=== PATIENT | male | born 1990 | race Caucasian/White ===

== ENCOUNTER 2016-04-22 09:20 | Emergency (ER) | payer BC, OTHER ==
[2016-04-22 09:47] VITALS: BP 115/58
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
== END 2016-04-22 12:19 | disposition home or self-care (01) ==
LOC: ED 09:20
DX: S01.511A Laceration without foreign body of lip, initial encounter (principal); S00.83XA Contusion of other part of head, initial encounter; R51 Headache; V49.9XXA Car occupant (driver) (passenger) injured in unspecified traffic accident, initial encounter; Y93.9 Activity, unspecified; Y92.9 Unspecified place or not applicable; Y99.9 Unspecified external cause status; R04.0 Epistaxis; Z87.891 Personal history of nicotine dependence
CPT/HCPCS: 70486; 99281

== ENCOUNTER 2016-06-10 15:49 | Emergency (ER) | payer BC, OTHER ==
[2016-06-10 17:29] LABS: Hematocrit 50 % (42-52); Hemoglobin 16.3 g/dl (14.0-18.0); Mean Corpuscular HGB Conc 33 g/dl (31-36); Mean Corpuscular Hemoglobin 29 pg (27-31); Mean Corpuscular Volume 87 fL (80-94); Mean Platelet Volume 8 um3 (7.4-10.4); Red Blood Count 5.67 10^6/ul (4.0-5.4); Red Cell Distribution Width 13 % (10.5-15)
[2016-06-10 17:31] LABS: Urine Bilirubin Negative (Negative); Urine Glucose Negative (Negative); Urine Nitrite Negative (Negative)
[2016-06-10 17:40] LABS: Albumin 4.5 g/dL (3.2-5.2); BUN/Creatinine Ratio 15.2 (8-20); Calcium 9.4 mg/dL (8.6-10.3); EGFR African American 153.7 (>60); EGFR Non-African American 119.5 (>60); Globulin 2.8 g/dL (2-4); Magnesium 2.1 mg/dL (1.9-2.7); Potassium 3.5 mmol/L (3.5-5.0); Total Bilirubin 0.4 mg/dL (0.2-1.0); Total Protein 7.3 g/dL (6.4-8.9)
[2016-06-10 17:42] LABS: Troponin I 0.01 ng/mL (<0.04)
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
[2016-06-10 17:59] LABS: TSH (Thyroid Stimulating Horm) 1.23 mcIU/mL (0.34-5.60)
[2016-06-10 18:36] VITALS: BP 138/75
== END 2016-06-10 18:34 | disposition home or self-care (01) ==
LOC: ED 15:49
DX: R55 Syncope and collapse (principal); M54.5 Low back pain; G89.29 Other chronic pain
CPT/HCPCS: 36415; 80053; 81003; 83605; 83735; 84443; 84484; 85025; 93005; 99282

== ENCOUNTER 2017-04-26 22:05 | Emergency (ER) | payer OTHER ==
[2017-04-27] MEDS ORDERED: diPHENhydraMINE IV* 50 MG/ML 1 ml VIAL (BENADRYL) IV ONE (00:01)
[2017-04-27] MEDS ORDERED: NS 0.9% 1000 ML* 1,000 ML IV ONE (00:01)
[2017-04-27] MEDS ORDERED: Ketorolac INJ* 30 MG/ML 1 ML VIAL IV PUSH ONE (00:01)
[2017-04-27] MEDS ORDERED: Metoclopramide IV* 5 MG/ML 2 ML VIAL IV SLOW PU ONE (00:02)
[2017-04-27 00:21] LABS: ABS Basophils 0 10^3/ul (0-0.2); ABS Eosinophils 0.1 10^3/ul (0-0.6); ABS Lymphocytes 2.3 10^3/ul (1.0-4.8); ABS Monocytes 0.7 10^3/ul (0-0.8); ABS Neutrophils 3.5 10^3/ul (1.5-7.7); ABS Nucleated RBC 0 10^3/ul; Eosinophil % 1.6 % (0-6); Hematocrit 46 % (42-52); Hemoglobin 15.6 g/dl (14.0-18.0); Lymphocyte % 34.7 % (25-47); Mean Corpuscular HGB Conc 34 g/dl (31-36); Mean Corpuscular Hemoglobin 30 pg (27-31); Mean Corpuscular Volume 89 fL (80-94); Mean Platelet Volume 9 um3 (7.4-10.4); Nucleated Red Blood Cells % 0; Platelet Count 176 10^3/ul (150-450); Red Blood Count 5.15 10^6/ul (4.0-5.4); Red Cell Distribution Width 13 % (10.5-15); White Blood Count 6.6 10^3/ul (3.5-10.8)
--- NOTE | 2017-04-27 01:49 | ED ---
Kennedy Sharma Nilda, scribed for Bjorn Marin MD on 04/27/17 at 0008 . Syncope/Near Syncope - HPI Summary HPI Summary: This patient is a 26 year old M presenting to [facility] accompanied by family with a chief complaint of witnessed sudden onset syncopal episode (lasting 10 mins) at 2130 last night. The patient rates the pain 9/10 in severity. Symptoms aggravated by nothing and alleviated by spontaneous resolution. Patient reports nausea and headache (chronic), but denies any injury. PMHx migraine and syncope. Pt does not see neurologist, per triage note. - History Of Current Complaint Chief Complaint: EDSyncope Time Seen by Provider: 04/26/17 23:52 Hx Obtained From: Patient, Medical Records Onset/Duration: Sudden Onset, Lasting Hours, Resolved Context: Witnessed Associated Head Trauma: No Aggravating Factor(s): Nothing Alleviating Factor(s): Spontaneous Resolution Associated Signs And Symptoms: Headache, Other - nausea; negative injury - Allergies/Home Medications Allergies/Adverse Reactions: Allergies Allergy/AdvReac Type Severity Reaction Status Date / Time Latex Allergy Intermediate Rash Verified 04/26/17 22:21 Sulfa Drugs Allergy Unknown Unknown Verified 04/26/17 22:21 Reaction Details PMH/Surg Hx/FS Hx/Imm Hx Endocrine/Hematology History: Denies: Hx Anticoagulant Therapy, Hx Blood Disorders, Hx Anemia, Hx Unexplained Bleeding Neurological History: Reports: Hx Migraine Comment Only: Other Neuro Impairments/Disorders - H/o BACK PAIN, per pt Tourette's syndrome, syncope Infectious Disease History: No Infectious Disease History: Reports: History Other Infectious Disease - Lyme dz , recurring Denies: Traveled Outside the [place] in Last 30 Days - Family History Known Family History: Positive: Cardiac Disease - [place]'s in 40's, Diabetes, Respiratory Disease - COPD - Social History Alcohol Use: Occasionally Substance Use Type: Reports: Marijuana - occasionally Smoking Status (MU): Former Smoker Review of Systems Positive: Nausea Positive: Other - negative injury Positive: Headache, Syncope All Other Systems Reviewed And Are Negative: Yes Physical Exam - Summary Physical Exam Summary: VITAL SIGNS: Reviewed. GENERAL: Patient is a well-developed and nourished male who is lying comfortable in the stretcher. Patient is not in any acute respiratory distress. HEAD AND FACE: No signs of trauma. No ecchymosis, hematomas or skull depressions. No sinus tenderness. EYES: PERRLA, EOMI x 2, No injected conjunctiva, no nystagmus. EARS: Hearing grossly intact. Ear canals and tympanic membranes are within normal limits. MOUTH: Oropharynx within normal limits. NECK: Supple, trachea is midline, no adenopathy, no JVD, no carotid bruit, no c- spine tenderness, neck with full ROM. CHEST: Symmetric, no tenderness at palpation LUNGS: Clear to auscultation bilaterally. No wheezing or crackles. CVS: Regular rate and rhythm, S1 and S2 present, no murmurs or gallops appreciated. ABDOMEN: Soft, non-tender. No signs of distention. No rebound no guarding, and no masses palpated. Bowel sounds are normal. EXTREMITIES: FROM in all major joints, no edema, no cyanosis or clubbing. NEURO: Alert and oriented x 3. No acute neurological deficits. Speech is normal and follows commands. SKIN: Dry and warm Triage Information Reviewed: Yes Vital Signs On Initial Exam: Initial Vitals Temp Pulse Resp BP Pulse Ox 97.8 F 84 16 136/72 96 04/26/17 22:10 04/26/17 22:10 04/26/17 22:10 04/26/17 22:10 04/26/17 22:10 Vital Signs Reviewed: Yes Diagnostics - Vital Signs Vital Signs Temp Pulse Resp BP Pulse Ox 04/26/17 22:10 97.8 F 84 16 136/72 96 - Laboratory Result Diagrams: 04/27/17 00:05 04/27/17 00:05 Lab Statement: Any lab studies that have been ordered have been reviewed, and results considered in the medical decision making process. - EKG 2230 Cardiac Rate: NL EKG Rhythm: Sinus Rhythm - 73 bpm EKG Interpretation: Normal axis. Normal interval. No ischemic changes Re-Evaluation - Re-Evaluation First Eval Re-Evaluation Time: 01:26 Comment: Pt feels better. He is agreeable to D/C. Course/Dx Assessment/Plan: Pt is 26 y/o M presenting to ED with Hx headache and c/o GERMAIN and syncope. EKG and Labs unremarkable. Pt feels better after treatment in ED. Pt is D/C with Dx of GERMAIN. Pt understands and is agreeable with this plan. - Diagnoses Provider Diagnoses: Headache Discharge - Discharge Plan Condition: Stable Disposition: HOME Patient Education Materials: General Headache (ED) Referrals: Grace Lopez NP [Primary Care Provider] - 3 Days Additional Instructions: RETURN TO THE EMERGENCY DEPARTMENT FOR CHANGING OR WORSENING SYMPTOMS. The documentation as recorded by the Kennedy frias Nilda accurately reflects the service I personally performed and the decisions made by , Bjorn Marin MD.
[2017-04-27 01:58] VITALS: BP 121/66
== END 2017-04-27 02:05 | disposition home or self-care (01) ==
LOC: ED 22:05
DX: R51 Headache (principal); R55 Syncope and collapse; R11.0 Nausea; Z87.891 Personal history of nicotine dependence
CPT/HCPCS: 36415; 80053; 83735; 84443; 84484; 85025; 93005; 96374; 96375; 99283; J1200; J1885; J2765

== ENCOUNTER 2017-09-26 04:18 | Emergency (ER) | payer OTHER ==
[2017-09-26 04:24] VITALS: BP 149/90
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
== END 2017-09-26 04:34 | disposition home or self-care (01) ==
LOC: ED 04:18
DX: Z04.9 Encounter for examination and observation for unspecified reason (principal); Z72.89 Other problems related to lifestyle; Z87.891 Personal history of nicotine dependence
CPT/HCPCS: 99281

== ENCOUNTER 2017-11-19 23:12 | Emergency (ER) | payer OTHER ==
--- OUTSIDE RECORDS SUMMARY | 2017-11-19 23:25 | XMS REPORT ---
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 [place] [address] Medigap Part B Effective: Policy Number: Excellus SACHI Singh Yakelin Jessica 2013 [id number] Abhi Expires: 2014 Group Name: [place] [address] [address] PayID: [id number] JEREMY Ronquillo [id number] Medigap Part B Effective: Policy Number: Excell[employer] SACHI Francisco Yakelin Lopez 2014 [id number] Abhi Expires: 2016 Group Name: [place] 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 Lewis work on side. Cigarette Use Former Cigarette Smoker 1 Pack Daily Smokeless Tobacco Former Smokeless Tobacco User, Used Occasionally ETOH Use Occasionally consumes alcohol Recreational Drug Use Regularly uses Marijuana Smoking Patient is a former smoker Enjoy Exercising Enjoys exercising Currently Active Patient is currently sexually active Sexual Hx text Reports that his girlfriend has hx of Chlamydia. Pt requests STI testing today. Allergies, Adverse Reactions, Alerts Date Description Reaction Status Severity Comments 10/16/2013 Sulfa active 10/16/2013 Latex active Medications Medication Date Status Form Strength Qnty SIG Indications Ordering Provider Magnesium Active Capsules 300mg 60caps 1 tab by G47.00 Tc 018 mouth once Zach, or twice a MD day Rizatriptan Active Tablets 10mg 12tabs take 1 Tc Benzoate 018 tablet by Zach mouth one MD time at onset of headache may repeat after2 hours if headache persists as needed for migraine head Robaxin-750 Active Tablets 750mg 45tabs 1 tab by Tc 018 mouth Hetammy, three MD times a day for muscle spasm Trazodone HCL Active Tablets 50mg 60tabs take one Tc 017 to two Gerardoetderks, tablets by mouth at bedtime Meloxicam Active Tablets 7.5mg 60tabs take 1 Tc 016 tablet by janusz Serrano MD twice daily with food for back pain Lexapro Hx Tablets 20mg 30tabs 1 by mouth F32.9 Tc 018 - every day. 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 Ondansetron Hx Tablets 4mg 20twen dissolve 1 088.81 Grace 015 - Dispers ty tab by John mouth [employer] MACHINE [employer]-C 015 three times a day as needed nausea Oxycodone HCL Hx Tablets 5mg 20twen 1 by mouth 088.81 Grace 015 - ty q6hr as John needed [employer]-C 015 severe pain Fluoxetine HCL Hx Capsules 20mg 30caps 1 by mouth Grace 015 - every day John [employer]ACH[employer] 015 Trazodone HCL Hx Tablets 50mg 60tabs take one Grace 015 - to two John tablets by [employer] MACHINE [employer]-C 015 mouth at bedtime Robaxin-750 Hx Tablets 750mg 45tabs 1 tab by Grace 015 - mouth John three [employer] MACHINE [employer]-C 015 times a day for muscle spasm Sertraline HCL Hx Tablets 50mg 30tabs 1/2 tablet 300.00 Grace 015 - po qd X 7 John days then B[employer] MACHINE TENDER-C 015 1 tablet by mouth every day Hydroxyzine Hx Tablets 10mg 45tabs 1 -3 300.00 Grace HCL 015 - tablet by John, mouth [employer]-C 016 three times a day for anxiety/in somnia Doxycycline Hx Capsules 100mg 20caps 1 tab by 041.19 Grace Hyclate 015 - mouth John twice a [employer] MACHINE [employer]-C 015 day x 10 days Lexapro Hx Tablets 10mg 30tabs 1/2 tab by 311 Grace 015 - mouth x 7 John, days then [employer] MACHINE [employer]-C 015 1 by mouth every day Cephalexin Hx Tablets 500mg 14tabs take 1 041.19 Grace 015 - tablet by John mouth [employer]ACH[employer]-C 015 twice a day x 7 days No Active Hx Unknown Medications 014 - 014 Glucosamine Hx Tablets Unknown Chondroitin 000 - Complex Advanced 015 Medications Administered in Office Medication Date Status Form Strength Qnty SIG Indications Ordering Provider Phenergan Administered Injection Tc Injection (Up 018 He[place]derks, To 50MG) MD Injection Administered Injection Tc Ketorolac 018 He[place]ks, Tromethamine MD Per 15 MG (Toradol) Injection Administered Injection Grace Ketorolac 018 John, Tromethamine [employer] MACHINE TENDER-C Per 15 MG (Toradol) Injection Administered Injection Grace Ketorolac 018 John, Tromethamine BINDERY MACHINE TENDER-C Per 15 MG (Toradol) Immunizations CPT Code Status Date Vaccine Lot # [id number] Given 04/30/2017 Influenza Virus Vaccine, Quadrivalent, 3 Yr > [id number] Quad, Preserv Free 61492 Given 02/24/2016 Tdap (Adacel) [id number] 32039 Given 02/24/2016 Influenza Virus Vaccine, Quadrivalent, 3 Yr > [id number] Quad, Preserv Free 08406 Given 06/21/2008 Menactra (meningococcal conjugate vaccine) 70947 Given 06/23/1995 Opv (Poliovirus,Oral) 94411 Given 06/23/1995 MMR (Measles,Mumps,Rubella) 50965 Given 06/23/1995 DTaP (Daptacel) 47183 Given 08/28/1992 Hep B Vaccine, Ped/Adol Dose 3 Dose (Engerix or Recombivax) 34690 Given 04/04/1992 Hep B Vaccine, Ped/Adol Dose 3 Dose (Engerix or Recombivax) 25648 Given 02/28/1992 Hep B Vaccine, Ped/Adol Dose 3 Dose (Engerix or Recombivax) 45766 Given 09/21/1991 Hib (Hemophilus Influenza B) (Acthib) 17385 Given 09/21/1991 DTaP (Daptacel) 31293 Given 09/21/1991 MMR (Measles,Mumps,Rubella) 17571 Given 09/21/1991 Opv (Poliovirus,Oral) 39277 Given 1990 DTaP (Daptacel) 33754 Given 1990 Hib (Hemophilus Influenza B) (Acthib) 93817 Given 1990 Opv (Poliovirus,Oral) 04248 Given 1990 DTaP (Daptacel) 21269 Given 1990 Hib (Hemophilus Influenza B) (Acthib) 23075 Given 1990 Opv (Poliovirus,Oral) 32976 Given 1990 DTaP (Daptacel) 15559 Given 1990 Hib (Hemophilus Influenza B) (Acthib) Vital Signs Date Vital Result Comment 11/11/2017 Weight 153.00 lb Weight in kg's 69.401 BP Systolic 122 mmHg BP Diastolic 83 mmHg Heart Rate 76 /min Body Temperature 98.3 F O2 % BldC Oximetry 98 % 09/29/2017 Weight 148.00 lb Weight in kg's 67.133 BP Systolic 102 mmHg BP Diastolic 65 mmHg Heart Rate 64 /min Body Temperature 97.7 F 06/28/2017 Weight 163.00 lb Weight in kg's 73.937 BP Systolic 118 mmHg BP Diastolic 60 mmHg Heart Rate 88 /min Body Temperature 98.4 F Respiratory Rate 16 /min 05/25/2017 Weight 157.00 lb Weight in kg's 71.215 BP Systolic 114 mmHg BP Diastolic 60 mmHg Heart Rate 98 /min Body Temperature 98.0 F Respiratory Rate 16 /min Height 67.5 inches 5'7.50" BMI (Body Mass Index) 24.2 kg/m2 O2 % BldC Oximetry 99 % 05/14/2017 Weight 161.00 lb Weight in kg's 73.030 BP Systolic 120 mmHg BP Diastolic 62 mmHg Heart Rate 72 /min Body Temperature 96.9 F Respiratory Rate 16 /min O2 % BldC Oximetry 98 % 04/30/2017 Weight 159.00 lb Weight in kg's 72.122 BP Systolic 120 mmHg BP Diastolic 60 mmHg Heart Rate 72 /min Body Temperature 98.2 F 11/18/2016 Weight 153.00 lb Weight in kg's 69.401 BP Systolic 110 mmHg BP Diastolic 60 mmHg Heart Rate 56 /min Body Temperature 97.8 F Respiratory Rate 12 /min 2016 BP Systolic 117 mmHg BP Diastolic 80 mmHg Heart Rate 64 /min Body Temperature 98.0 F O2 % BldC Oximetry 98 % 04/09/2016 Weight 165.00 lb Weight in kg's 74.844 BP Systolic 102 mmHg BP Diastolic 58 mmHg Heart Rate 73 /min Body Temperature 97.7 F Respiratory Rate 14 /min O2 % BldC Oximetry 98 % 02/24/2016 Weight 156.00 lb Weight in kg's 70.762 BP Systolic 118 mmHg BP Diastolic 56 mmHg Heart Rate 80 /min Body Temperature 98.7 F Respiratory Rate 16 /min Height 66.5 inches 5'6.50" BMI (Body Mass Index) 24.8 kg/m2 12/07/2014 Weight 156.00 lb Weight in kg's 70.762 BP Systolic 100 mmHg BP Diastolic 60 mmHg Heart Rate 68 /min Height 66.5 inches 5'6.50" BMI (Body Mass Index) 24.8 kg/m2 10/24/2014 Weight 157.00 lb Weight in kg's 71.215 BP Systolic 110 mmHg BP Diastolic 60 mmHg Heart Rate 48 /min 09/28/2014 Weight 152.00 lb Weight in kg's 68.947 BP Systolic 100 mmHg BP Diastolic 48 mmHg Heart Rate 64 /min Body Temperature 96.7 F 07/27/2014 Weight 143.00 lb Weight in kg's 64.865 BP Systolic 112 mmHg BP Diastolic 72 mmHg Heart Rate 81 /min Body Temperature 97.5 F O2 % BldC Oximetry 96 % 07/23/2014 Weight 146.00 lb Weight in kg's 66.226 BP Systolic 114 mmHg BP Diastolic 54 mmHg Heart Rate 84 /min 07/04/2014 Weight 152.00 lb Weight in kg's 68.947 BP Systolic 88 mmHg BP Diastolic 50 mmHg Heart Rate 62 /min 06/13/2014 Weight 144.00 lb Weight in kg's 65.318 BP Systolic 122 mmHg BP Diastolic 64 mmHg Heart Rate 72 /min Body Temperature 98.0 F 06/06/2014 Weight 148.00 lb Weight in kg's 67.133 BP Systolic 124 mmHg BP Diastolic 78 mmHg Heart Rate 72 /min Body Temperature 98.1 F Height 67 inches 5'7" BMI (Body Mass Index) 23.2 kg/m2 11/10/2013 Weight 154.00 lb Weight in kg's 69.854 BP Systolic 120 mmHg BP Diastolic 60 mmHg Heart Rate 60 /min 10/16/2013 Weight 152.00 lb Weight in kg's 68.947 BP Systolic 122 mmHg BP Diastolic 56 mmHg Heart Rate 88 /min Height 67 inches 5'7" BMI (Body Mass Index) 23.8 kg/m2 O2 % BldC Oximetry 99 % Results Test Date Test Result H/L Range Note CBC Auto Diff 04/27/2017 White Blood Count 6.6 10^3/uL 3.5-10.8 Red Blood Count 5.15 10^6/uL 4.0-5.4 Hemoglobin 15.6 g/dL 14.0-18.0 Hematocrit 46 % 42-52 Mean Corpuscular Volume 89 fL 80-94 Mean Corpuscular Hemoglobin 30 pg 27-31 Mean Corpuscular HGB Conc 34 g/dL 31-36 Red Cell Distribution Width 13 % 10.5-15 Platelet Count 176 10^3/uL 150-450 Mean Platelet Volume 9 um3 7.4-10.4 Abs Neutrophils 3.5 10^3/uL 1.5-7.7 Abs Lymphocytes 2.3 10^3/uL 1.0-4.8 Abs Monocytes 0.7 10^3/uL 0-0.8 Abs Eosinophils 0.1 10^3/uL 0-0.6 Abs Basophils 0 10^3/uL 0-0.2 Abs Nucleated RBC 0 10^3/uL Granulocyte % 52.3 % 38-83 Lymphocyte % 34.7 % 25-47 Monocyte % 11.1 % High 1-9 Eosinophil % 1.6 % 0-6 Basophil % 0.3 % 0-2 Nucleated Red Blood Cells % 0 Comp Metabolic Panel 04/27/2017 Sodium 134 mmol/L 133-145 Potassium 3.4 mmol/L Low 3.5-5.0 Chloride 100 mmol/L Low 101-111 Co2 Carbon Dioxide 29 mmol/L 22-32 Anion Gap 5 mmol/L 2-11 Glucose 112 mg/dL High 70-100 Blood Urea Nitrogen 17 mg/dL 6-24 Creatinine 0.76 mg/dL 0.67-1.17 BUN/Creatinine Ratio 22.4 High 8-20 Calcium 9.3 mg/dL 8.6-10.3 Total Protein 6.4 g/dL 6.4-8.9 Albumin 4.1 g/dL 3.2-5.2 Globulin 2.3 g/dL 2-4 Albumin/Globulin Ratio 1.8 1-3 Total Bilirubin 0.30 mg/dL 0.2-1.0 Alkaline Phosphatase 39 U/L 34-104 Alt 20 U/L 7-52 Ast 20 U/L 13-39 Egfr Non- 124.0 >60 Egfr 159.4 >60 1 Laboratory test finding 04/27/2017 Magnesium 2.1 mg/dL 1.9-2.7 Troponin-I (TnI) 0.00 ng/mL <0.04 TSH (Thyroid Stimulating Horm) 3.59 mcIU/mL 0.34-5.60 Lyme Western Blot 05/27/2016 Lyme Disease IgG Ab WB Negative Negative Lyme Disease IgG Bands Present p23, kDa Lyme Disease IgM Ab WB Positive Negative Lyme Disease IgM Bands Present p41, p39, kDa Lyme Disease Interpretation See Comment 2 Laboratory test finding 05/27/2016 C Reactive Protein < 1.00 mg/L < 5.00 3 Erythrocyte Sed Rate 4 mm/Hr 0-14 4 Cyclic Citrullinated Pep Igg <15.6 U 5 Aldolase 10.5 U/L <7.7 6 Anti Nuclear Antibody 0.3 U 7 Laboratory test finding 04/09/2016 TSH (Thyroid Stim Horm) 0.89 mcIU/mL 0.34-5.60 8 T3 Total 0.88 ng/mL 0.87-1.78 9 Free T4 (Free Thyroxine) 0.85 ng/dL 0.61-1.12 10 CBC Auto Diff 04/09/2016 White Blood Count 8.7 10^3/uL 3.5-10.8 Red Blood Count 5.38 10^6/uL 4.0-5.4 Hemoglobin 15.9 g/dL 14.0-18.0 Hematocrit 47 % 42-52 Mean Corpuscular Volume 88 fL 80-94 Mean Corpuscular Hemoglobin 30 pg 27-31 Mean Corpuscular HGB Conc 34 g/dL 31-36 Red Cell Distribution Width 13 % 10.5-15 Platelet Count 179 10^3/uL 150-450 Mean Platelet Volume 9 um3 7.4-10.4 Abs Neutrophils 6.4 10^3/uL 1.5-7.7 Abs Lymphocytes 1.3 10^3/uL 1.0-4.8 Abs Monocytes 0.9 10^3/uL High 0-0.8 Abs Eosinophils 0 10^3/uL 0-0.6 Abs Basophils 0 10^3/uL 0-0.2 Abs Nucleated RBC 0 10^3/uL Granulocyte % 73.8 % 38-83 Lymphocyte % 15.0 % Low 25-47 Monocyte % 10.5 % High 1-9 Eosinophil % 0.4 % 0-6 Basophil % 0.3 % 0-2 Nucleated Red Blood Cells % 0 Laboratory test finding 04/09/2016 Cyclic Citrullinated Pep <15.6 U 11 Igg Lyme Western Blot 04/09/2016 Lyme Disease IgG Ab WB Negative Negative Lyme Disease IgG Bands Present p23, kDa Lyme Disease IgM Ab WB Positive Negative Lyme Disease IgM Bands Present p41, p39, kDa Lyme Disease Interpretation See Comment 12 Comp Metabolic Panel 04/09/2016 Sodium 136 mmol/L 133-145 Potassium 4.1 mmol/L 3.5-5.0 Chloride 105 mmol/L 101-111 Co2 Carbon Dioxide 26 mmol/L 22-32 Anion Gap 5 mmol/L 2-11 Glucose 101 mg/dL High 70-100 Blood Urea Nitrogen 18 mg/dL 6-24 Creatinine 1.32 mg/dL High 0.67-1.17 BUN/Creatinine Ratio 13.6 8-20 Calcium 8.8 mg/dL 8.6-10.3 Total Protein 6.9 g/dL 6.4-8.9 Albumin 4.4 g/dL 3.2-5.2 Globulin 2.5 g/dL 2-4 Albumin/Globulin Ratio 1.8 1-3 Total Bilirubin 0.50 mg/dL 0.2-1.0 Alkaline Phosphatase 54 U/L 34-104 Alt 29 U/L 7-52 Ast 23 U/L 13-39 Egfr Non- 66.1 >60 Egfr 85.0 >60 13 Pthi 04/09/2016 PTH Intact 4.0 pmol/L 1.3-9.3 Calcium (PTH Intact) 8.8 mg/dL 8.6-10.3 Laboratory test finding 04/09/2016 C Reactive Protein 26.56 mg/L High < 5.00 14 Erythrocyte Sed Rate 5 mm/Hr 0-14 15 Rheumatoid Factor <15 IU/mL <15 16 Aldolase 10.9 U/L <7.7 17 GC/Chlamydia Amplified Rna 02/24/2016 Chlamydia trachomatis Rna Negative Negative Neisseria gonorrhoeae (GC) Rna Negative Negative Laboratory test finding 02/24/2016 Anaplasma Phagocytophilium <1:64 titer <1:64 18 Babesiosis Evaluation <1:64 titer <1:64 19 Aldolase 13.5 U/L <7.7 20 Laboratory test finding 02/24/2016 TSH (Thyroid Stim 1.60 mcIU/mL 0.34- 5.60 21 Horm) Vitamin D Total 25(Oh) 28.0 ng/mL Low 30-50 22 Vitamin B12 474 pg/mL 180-914 23 Comp Metabolic Panel 02/24/2016 Sodium 137 mmol/L 133-145 Potassium 3.9 mmol/L 3.5-5.0 Chloride 102 mmol/L 101-111 Co2 Carbon Dioxide 28 mmol/L 22-32 Anion Gap 7 mmol/L 2-11 Glucose 100 mg/dL 70-100 Blood Urea Nitrogen 23 mg/dL 6-24 Creatinine 0.90 mg/dL 0.67-1.17 BUN/Creatinine Ratio 25.6 High 8-20 Calcium 9.3 mg/dL 8.6-10.3 Total Protein 7.2 g/dL 6.4-8.9 Albumin 4.3 g/dL 3.2-5.2 Globulin 2.9 g/dL 2-4 Albumin/Globulin Ratio 1.5 1-3 Total Bilirubin 0.30 mg/dL 0.2-1.0 Alkaline Phosphatase 55 U/L 34-104 Alt 26 U/L 7-52 Ast 27 U/L 13-39 Egfr Non- 102.8 >60 Egfr 132.2 >60 24 Lyme Western Blot 02/24/2016 Lyme Disease IgG Ab WB Negative Negative Lyme Disease IgG Bands Present p41, p23, kDa Lyme Disease IgM Ab WB Negative Negative Lyme Disease IgM Bands Present p41, kDa Lyme Disease Interpretation See Comment 25 Urine DIP 12/07/2014 Specific [place] 1.015 1.01-1.02 Urine pH 6 5-6 Leukocytes NEG Neg Urine Nitrites NEG Neg Total Protein, Urine NEG Neg Urine Glucose NORM Norm Urine Ketones NEG Neg Urobilinogen NORM Norm Urine Bilirubin NEG Neg Urine Blood NEG Neg Laboratory test finding 07/27/2014 Magnesium 2.3 mg/dL 1.9-2.7 Vitamin B12 406 pg/mL 180-914 26 CBC Auto Diff 07/27/2014 White Blood Count 9.4 10^3/uL 4.8-10.8 Red Blood Count 5.67 10^6/uL High 4.0-5.4 Hemoglobin 17.4 g/dL 14.0-18.0 Hematocrit 50 % 42-52 Mean Corpuscular Volume 89 fL 80-94 Mean Corpuscular Hemoglobin 31 pg 27-31 Mean Corpuscular HGB Conc 35 g/dL 31-36 Red Cell Distribution Width 13 % 10.5-15 Platelet Count 259 10^3/uL 150-450 Mean Platelet Volume 9 um3 7.4-10.4 Abs Neutrophils 6.4 10^3/uL 1.5-7.7 Abs Lymphocytes 2.3 10^3/uL 1.0-4.8 Abs Monocytes 0.7 10^3/uL 0-0.8 Abs Eosinophils 0 10^3/uL 0-0.6 Abs Basophils 0 10^3/uL 0-0.2 Abs Nucleated RBC 0.02 10^3/uL Granulocyte % 67.5 % 38-83 Lymphocyte % 24.8 % Low 25-47 Monocyte % 7.1 % 1-9 Eosinophil % 0.2 % 0-6 Basophil % 0.4 % 0-2 Nucleated Red Blood Cells % 0.2 Comp Metabolic Panel 07/27/2014 Sodium 136 mmol/L 133-145 Potassium 3.9 mmol/L 3.5-5.0 Chloride 100 mmol/L Low 101-111 Co2 Carbon Dioxide 26 mmol/L 22-32 Anion Gap 10 mmol/L 2-11 Glucose 73 mg/dL 70-100 Blood Urea Nitrogen 17 mg/dL 6-24 Creatinine 0.79 mg/dL 0.67-1.17 BUN/Creatinine Ratio 21.5 High 8-20 Calcium 10.0 mg/dL 8.6-10.3 Total Protein 8.1 g/dL 6.4-8.9 Albumin 5.3 g/dL High 3.2-5.2 Globulin 2.8 g/dL 2-4 Albumin/Globulin Ratio 1.9 1-3 Total Bilirubin 0.60 mg/dL 0.2-1.0 Alkaline Phosphatase 64 U/L 34-104 Alt 30 U/L 7-52 Ast 31 U/L 13-39 Egfr Non- 120.5 >60 Egfr 155.0 >60 27 Laboratory test finding 07/27/2014 Creatine Kinase 301 U/L High 10-223 CKMB 07/27/2014 CKMB ng/mL 7.5 ng/mL High 0.6-6.3 GC/Chlamydia Amplified 06/06/2014 Chlamydia trachomatis Negative Negative Rna Rna Neisseria gonorrhoeae (GC) Rna Negative Negative 28 CBC Auto Diff 06/06/2014 White Blood Count 5.0 10^3/uL 4.8-10.8 Red Blood Count 5.20 10^6/uL 4.0-5.4 Hemoglobin 16.0 g/dL 14.0-18.0 Hematocrit 47 % 42-52 Mean Corpuscular Volume 91 fL 80-94 Mean Corpuscular Hemoglobin 31 pg 27-31 Mean Corpuscular HGB Conc 34 g/dL 31-36 Red Cell Distribution Width 14 % 10.5-15 Platelet Count 203 10^3/uL 150-450 Mean Platelet Volume 10 um3 7.4-10.4 Abs Neutrophils 3.2 10^3/uL 1.5-7.7 Abs Lymphocytes 1.3 10^3/uL 1.0-4.8 Abs Monocytes 0.4 10^3/uL 0-0.8 Abs Eosinophils 0 10^3/uL 0-0.6 Abs Basophils 0 10^3/uL 0-0.2 Abs Nucleated RBC 0 10^3/uL Granulocyte % 65.0 % 38-83 Lymphocyte % 25.2 % 25-47 Monocyte % 8.2 % 1-9 Eosinophil % 0.8 % 0-6 Basophil % 0.8 % 0-2 Nucleated Red Blood Cells % 0.1 Urine DIP 06/06/2014 Specific [place] 1.01 1.01-1.02 Urine pH 5 5-6 Leukocytes NEG Neg Urine Nitrites NEG Neg Total Protein, Urine NEG Neg Urine Glucose NORM Norm Urine Ketones NEG Neg Urobilinogen NORM Norm Urine Bilirubin NEG Neg Urine Blood NEG Neg Culture Genital & 06/06/2014 Genital Culture (SEE NOTE) 29 Sensitivity Syphilis Screen 06/06/2014 Syphilis IgG Nonreactive Nonreactive 30 RPR TNP Nonreactive RPR Titer TNP Pediatric/Maternal NO Laboratory test finding 06/06/2014 Lyme Disease Serology Negative Negative 31 C Reactive Protein < 1.00 mg/L < 5.00 32 Erythrocyte Sed Rate 3 mm/Hr 0-14 HIV 1/2 AB Evaluation 06/06/2014 HIV 1 2 Antibody Nonreactive Nonreactive 33 Comp Metabolic Panel 06/06/2014 Sodium 138 mmol/L 133-145 Potassium 4.2 mmol/L 3.5-5.0 Chloride 105 mmol/L 101-111 Co2 Carbon Dioxide 30 mmol/L 22-32 Anion Gap 3 mmol/L 2-11 Glucose 92 mg/dL 70-100 Blood Urea Nitrogen 15 mg/dL 6-24 Creatinine 0.81 mg/dL 0.67-1.17 BUN/Creatinine Ratio 18.5 8-20 Calcium 9.3 mg/dL 8.6-10.3 Total Protein 6.8 g/dL 6.4-8.9 Albumin 4.6 g/dL 3.2-5.2 Globulin 2.2 g/dL 2-4 Albumin/Globulin Ratio 2.1 1-3 Total Bilirubin 0.60 mg/dL 0.2-1.0 Alkaline Phosphatase 56 U/L 34-104 Alt 23 U/L 7-52 Ast 23 U/L 13-39 Egfr Non- 118.1 >60 Egfr 151.9 >60 34 Vitamin D, 25 Hydroxy 10/17/2013 25-Hydroxy Vitamin D2 <4.0 ng/mL 25-Hydroxy Vitamin D3 27 ng/mL 25-Hydroxy Vitamin D Total 27 ng/mL 35 Laboratory test finding 10/17/2013 Vitamin B12 508 pg/mL 180-914 36 CBC Auto Diff 10/17/2013 White Blood Count 5.5 10^3/uL 4.8-10.8 Red Blood Count 5.40 10^6/uL 4.0-5.4 Hemoglobin 16.2 g/dL 14.0-18.0 Hematocrit 48 % 42-52 Mean Corpuscular Volume 89 fL 80-94 Mean Corpuscular Hemoglobin 30 pg 27-31 Mean Corpuscular HGB Conc 34 g/dL 31-36 Red Cell Distribution Width 13 % 10.5-15 Platelet Count 199 10^3/uL 150-450 Mean Platelet Volume 9 um3 7.4-10.4 Abs Neutrophils 3.1 10^3/uL 1.5-7.7 Abs Lymphocytes 1.9 10^3/uL 1.0-4.8 Abs Monocytes 0.4 10^3/uL 0-0.8 Abs Eosinophils 0.1 10^3/uL 0-0.6 Abs Basophils 0 10^3/uL 0-0.2 Abs Nucleated RBC 0.01 10^3/uL Granulocyte % 56.2 % 38-83 Lymphocyte % 34.3 % 25-47 Monocyte % 7.8 % 1-9 Eosinophil % 1.2 % 0-6 Basophil % 0.5 % 0-2 Nucleated Red Blood Cells % 0.1 Comp Metabolic Panel 10/17/2013 Sodium 137 mmol/L 133-145 Potassium 5.2 mmol/L 3.7-5.6 Chloride 103 mmol/L 101-111 Co2 Carbon Dioxide 30 mmol/L 22-32 Anion Gap 4 mmol/L 2-11 Glucose 119 mg/dL High 70-100 Blood Urea Nitrogen 19 mg/dL 6-24 Creatinine 0.91 mg/dL 0.67-1.17 BUN/Creatinine Ratio 20.9 High 8-20 Calcium 9.4 mg/dL 8.6-10.3 Total Protein 7.2 g/dL 6.4-8.9 Albumin 4.7 g/dL 3.2-5.2 Globulin 2.5 g/dL 2-4 Albumin/Globulin Ratio 1.9 1-3 Total Bilirubin 0.40 mg/dL 0.2-1.0 Alkaline Phosphatase 54 U/L 34-104 Alt 24 U/L 7-52 Ast 20 U/L 13-39 Egfr Non- 103.2 >60 Egfr 132.8 >60 37 Laboratory test finding 10/17/2013 Lyme Disease Serology Negative Negative 38 Hemoglobin A1c 5.4 % Less than 6.0 39 Urine DIP 10/16/2013 Specific [place] 1.010 1.01-1.02 Urine pH 5 5-6 Leukocytes neg Neg Urine Nitrites neg Neg Total Protein, Urine neg Neg Urine Glucose norm Norm Urine Ketones neg Neg Urobilinogen norm Norm Urine Bilirubin neg Neg Urine Blood neg Neg GC/Chlamydia Amplified Rna 10/16/2013 GC/Chlamydia Rna (SEE NOTE) 40 1 Because ethnic data is not always readily available, this report includes an eGFR for both -Americans and non- Americans. The National Kidney Disease Education Program (NKDEP) does not endorse the use of the MDRD equation for patients that are not between the ages of 18 and 70, are , have extremes of body size, muscle mass, or nutritional status, or are non- or non-. According to the National Kidney Foundation, irrespective of diagnosis, the stage of the disease is based on the level of kidney function: Stage Description GFR(mL/min/1.73 m(2)) 1 Kidney damage with normal or decreased GFR 90 2 Kidney damage with mild decrease in GFR 60-89 3 Moderate decrease in GFR 30-59 4 Severe decrease in GFR 15-29 5 Kidney failure <15 (or dialysis) 2 Consistent with early infection with Borrelia burgdorferi. A new serum specimen should be submitted in 14-21 days to demonstrate seroconversion of IgG. IgM blot criteria is of diagnostic utility only during the first 4 weeks of early Lyme disease. ADDITIONAL INFORMATION CDC criteria require >=5 bands for IgG or >=2 bands for IgM for the Immunoblot to be considered positive. Bands (e.g.,p41) may be detected in patients without Lyme disease, and patterns not meeting the CDC criteria should be interpreted with caution. Immunoblot should be ordered only on specimens that are positive or equivocal by a FDA-licensed Lyme disease antibody screening test (e.g., EIA). Test Performed by: [place] [address] Hydraulic [employer]eter Operator: Gera Dejesus II, M.D., Ph.D. 3 Acute inflammation: >10.00 4 [id number] 5 REFERENCE VALUE <20.0 (Negative) Test Performed by: [place] [address] [employer]ulic [employer] Operator: Gera Dejesus II, M.D., Ph.D. 6 Test Performed by: [place] [address] [employer]draulic [employer] Operator: Gera Dejesus II, M.D., Ph.D. 7 REFERENCE VALUE <=1.0 (Negative) Test Performed by: [place] [address] [employer]draulic [employer] Operator: Gera Dejesus II, M.D., Ph.D. 8 [id number] 11 REFERENCE VALUE <20.0 (Negative) Test Performed by: [facility] [place] [address] Hydraulic [employer] Operator: Gera Dejesus II, M.D., Ph.D. 12 Consistent with early infection with Borrelia burgdorferi. A new serum specimen should be submitted in 14-21 days to demonstrate seroconversion of IgG. IgM blot criteria is of diagnostic utility only during the first 4 weeks of early Lyme disease. ADDITIONAL INFORMATION CDC criteria require >=5 bands for IgG or >=2 bands for IgM for the Immunoblot to be considered positive. Bands (e.g.,p41) may be detected in patients without Lyme disease, and patterns not meeting the CDC criteria should be interpreted with caution. Immunoblot should be ordered only on specimens that are positive or equivocal by a FDA-licensed Lyme disease antibody screening test (e.g., EIA). Test Performed by: [facility] [place] [address] Hydraulic [employer] Operator: Gera Dejesus II, M.D., Ph.D. 13 Because ethnic data is not always readily available, this report includes an eGFR for both -Americans and non- Americans. The National Kidney Disease Education Program (NKDEP) does not endorse the use of the MDRD equation for patients that are not between the ages of 18 and 70, are , have extremes of body size, muscle mass, or nutritional status, or are non- or non-. According to the National Kidney Foundation, irrespective of diagnosis, the stage of the disease is based on the level of kidney function: Stage Description GFR(mL/min/1.73 m(2)) 1 Kidney damage with normal or decreased GFR 90 2 Kidney damage with mild decrease in GFR 60-89 3 Moderate decrease in GFR 30-59 4 Severe decrease in GFR 15-29 5 Kidney failure <15 (or dialysis) 14 Acute inflammation: >10.00 15 [id number] 16 Test Performed by: [place] [address] Hydraulic Bull Riveter Operator: Gera Dejesus II, M.D., Ph.D. 17 Test Performed by: [facility] [place] [address] Hydraulic Bull Riveter Operator: Gera Dejesus II, M.D., Ph.D. 18 ADDITIONAL INFORMATION This test was developed using an analyte specific reagent. Its performance characteristics were determined by [facility] in a manner consistent with CLIA requirements. This test has not been cleared or approved by the U.S. Food and Drug Administration. Test Performed by: [facility] [place] [address] Hydraulic Bull Riveter Operator: Gera Dejesus II, M.D., Ph.D. 19 ADDITIONAL INFORMATION This test was developed using an analyte specific reagent. Its performance characteristics were determined by [facility] in a manner consistent with CLIA requirements. This test has not been cleared or approved by the U.S. Food and Drug Administration. Test Performed by: [place] [address] Hydraulic Bull Riveter Operator: Gera Dejesus II, M.D., Ph.D. 20 Test Performed by: [place] [address] Hydraulic Bull Riveter Operator: Gera Dejesus II, M.D., Ph.D. 21 [id number] 23 Normal Range 180 to 914 Indeterminate Range 145 to 180 Deficient Range <145 24 Because ethnic data is not always readily available, this report includes an eGFR for both -Americans and non- Americans. The National Kidney Disease Education Program (NKDEP) does not endorse the use of the MDRD equation for patients that are not between the ages of 18 and 70, are , have extremes of body size, muscle mass, or nutritional status, or are non- or non-. According to the National Kidney Foundation, irrespective of diagnosis, the stage of the disease is based on the level of kidney function: Stage Description GFR(mL/min/1.73 m(2)) 1 Kidney damage with normal or decreased GFR 90 2 Kidney damage with mild decrease in GFR 60-89 3 Moderate decrease in GFR 30-59 4 Severe decrease in GFR 15-29 5 Kidney failure <15 (or dialysis) 25 Specific serologic response to B. burgdorferi infection is not detected, but cannot rule out early infection during which low or undetectable antibody levels to B. burgdorferi may be present. If clinically indicated, a new serum specimen should be submitted in 7-14 days. ADDITIONAL INFORMATION CDC criteria require >=5 bands for IgG or >=2 bands for IgM for the Immunoblot to be considered positive. Bands (e.g.,p41) may be detected in patients without Lyme disease, and patterns not meeting the CDC criteria should be interpreted with caution. Immunoblot should be ordered only on specimens that are positive or equivocal by a FDA-licensed Lyme disease antibody screening test (e.g., EIA). Test Performed by: [place] [address] Hydraulic Bull Riveter Operator: Gera Dejesus II, M.D., Ph.D. 26 Normal Range 180 to 914 Indeterminate Range 145 to 180 Deficient Range <145 27 Because ethnic data is not always readily available, this report includes an eGFR for both -Americans and non- Americans. The National Kidney Disease Education Program (NKDEP) does not endorse the use of the MDRD equation for patients that are not between the ages of 18 and 70, are , have extremes of body size, muscle mass, or nutritional status, or are non- or non-. According to the National Kidney Foundation, irrespective of diagnosis, the stage of the disease is based on the level of kidney function: Stage Description GFR(mL/min/1.73 m(2)) 1 Kidney damage with normal or decreased GFR 90 2 Kidney damage with mild decrease in GFR 60-89 3 Moderate decrease in GFR 30-59 4 Severe decrease in GFR 15-29 5 Kidney failure <15 (or dialysis) 28 Female urine specimens have been self-validated by [facility] and have been granted conditional assay approval by [facility]. 29 RUN DATE: 06/08/14 [facility] LIVE PAGE 1 RUN TIME: [address] [place] [address] Specimen Inquiry Name: KENDALL MOE : [address]: Grace Madrigal NP Acct: [id number] Unit: [id number] AGE: 23 Location: [facility] Re06/06/14 SEX: M Status: REG REF SPEC: [id number] MITESH: 06/06/14-[address] [facility] [address]: Grace Madrigal NP REQ: [id number] RECD: 06/06/14-1232 STATUS: COMP _ SOURCE: PENIS SPDESC: ORDERED: Genital Culture QUERIES: Provider Requisition # [id number] Procedure Result Verified Site Genital Culture Final 06/08/14- 34 ML Organism 1 NORMAL CARLA Quantity 1+ END OF REPORT * ML=Testing performed at Main Lab DEPARTMENT OF PATHOLOGY, [address] [place] [address] Tee Cuevas M.D. Director [facility] # [id number] 30 Warning: A positive result is not useful for establishing a diagnosis of syphilis. In most situations, such a result may reflect a prior treated infection; a negative result can exclude a diagnosis of syphilis except for incubating or early primary disease. 31 Serologic response to B. burgdorferi infection is not detected, but cannot rule out early infection during which low or undetectable antibody levels to B. burgdorferi may be present. If clinically indicated, a new serum specimen should be submitted in 7-14 days. Test Performed by: [address] [address] Hydraulic Bull Riveter Operator: Gera Dejesus II, M.D., Ph.D. 32 Acute inflammation: >10.00 33 It is recognized that currently available assays for the detection of antibodies to HIV-1 and/or HIV-2 may not detect all infected individuals. HIV antibodies may be undetectable in some stages of the infection and in some clinical conditions. The performance of this assay has not been established for populations of infants or children. Assayed by Chemiluminescence Microparticle Immunoassay on the Siemens Advia Centaur CP. Values obtained with different methods or kits cannot be used interchangeably.The diagnostic specificity of the ADVIA Centaur 1/O/2 Enhanced assay in the low risk population was 99.90% (6052/6058) with a 95% confidence interval of 99.78 to 99.96%. 34 Because ethnic data is not always readily available, this report includes an eGFR for both -Americans and non- Americans. The National Kidney Disease Education Program (NKDEP) does not endorse the use of the MDRD equation for patients that are not between the ages of 18 and 70, are , have extremes of body size, muscle mass, or nutritional status, or are non- or non-. According to the National Kidney Foundation, irrespective of diagnosis, the stage of the disease is based on the level of kidney function: Stage Description GFR(mL/min/1.73 m(2)) 1 Kidney damage with normal or decreased GFR 90 2 Kidney damage with mild decrease in GFR 60-89 3 Moderate decrease in GFR 30-59 4 Severe decrease in GFR 15-29 5 Kidney failure <15 (or dialysis) 35 -- REFERENCE VALUE -- 25-HYDROXY D TOTAL (D2+D3) Optimum levels in the healthy population are 20-50, patients with bone disease may benefit from higher levels within this range. Test Performed by: [facility] [place] [address] Hydraulic Bull Riveter Operator: Aaron Lux III, M.D. 36 Normal Range 180 to 914 Indeterminate Range 145 to 180 Deficient Range <145 37 Because ethnic data is not always readily available, this report includes an eGFR for both -Americans and non- Americans. The National Kidney Disease Education Program (NKDEP) does not endorse the use of the MDRD equation for patients that are not between the ages of 18 and 70, are , have extremes of body size, muscle mass, or nutritional status, or are non- or non-. According to the National Kidney Foundation, irrespective of diagnosis, the stage of the disease is based on the level of kidney function: Stage Description GFR(mL/min/1.73 m(2)) 1 Kidney damage with normal or decreased GFR 90 2 Kidney damage with mild decrease in GFR 60-89 3 Moderate decrease in GFR 30-59 4 Severe decrease in GFR 15-29 5 Kidney failure <15 (or dialysis) 38 Serologic response to B. burgdorferi infection is not detected, but cannot rule out early infection during which low or undetectable antibody levels to B. burgdorferi may be present. If clinically indicated, a new serum specimen should be submitted in 7-14 days. Test Performed by: [address] [address] Hydraulic Bull Riveter Operator: Aaron Lux III, M.D. 39 Therapeutic target for the treatment of diabetes Mellitus patients is <7% HBA1C, and in selective patients <6.0%.Please refer to [place] [employer] Diabetic care guidelines for further information. 40 RUN DATE: 10/17/13 [facility] LIVE PAGE 1 RUN TIME: [address] [place] [address] Specimen Inquiry Name: KENDALL MOE : [address]: Grace Madrigal NP Acct: [id number] Unit: [id number] AGE: 23 Location: [facility] Re10/16/13 SEX: M Status: REG REF SPEC: [id number] MITESH: 10/16/13-[address]: Grace Madrigal NP REQ: [id number] RECD: 10/16/13 STATUS: COMP _ SOURCE: URINE SPDESC: ORDERED: GC/Chlam RNA QUERIES: Medent Number [id number] Procedure Result Verified Site Chlamydia Trachomatis RNA Final 10/17/13- 1228 ML NEGATIVE for Chlamydia trachomatis rRNA GC (N. gonorrhoeae) RNA Final 10/17/13- 1228 ML NEGATIVE for Neisseria gonorrhoeae rRNA A negative result does not preclude the presence of a C. trachomatis or N. gonorrhoeae infection because results are dependent on adequate specimen collection, absence of inhibitors, and sufficient rRNA to be detected. Test results may be affected by improper specimen collection, improper storage, technical error, or specimen mixup. Limitations of the Procedure: The Aptima Combo 2 Assay is not intended for the evaluation of suspected sexual abuse or for other medico-legal indications. For those patients for whom a false positive result may have adverse psychosocial impact, the CDC recommends retesting by a method using an alternate technology. Therapeutic failure or success cannot be determined with the Aptima Combo 2 Assay since nucleic acid may persist following appropriate antimicrobial therapy. Results from the Aptima Combo 2 Assay should be interpreted in conjunction with other laboratory and clinical data available to the clinican. CONTINUED ON NEXT PAGE * ML=Testing performed at [facility] DEPARTMENT OF PATHOLOGY, [address] [place] [address] Tee Cuevas M.D. Director [facility] # [id number] RUN DATE: 10/17/13 [facility] LIVE PAGE 2 RUN TIME: [address] [place] [address] Specimen Inquiry Patient: KENDALL MOE [id number] (Continued) Specimen: [id number] Collected: 10/16/13 Received: 10/16/13-1242 (Continued) Procedure Result Verified Site GC (N. gonorrhoeae) RNA Final (continued) 10/17/13- 1228 Performance characteristics for detecting C. trachomatis and N. gonorrhoeae are derived from high prevalence populations. Positive results in low prevalence populations should be interpreted carefully with the understanding that the likelihood of a false positive may be higher than a true positive. END OF REPORT * ML=Testing performed at Main Lab DEPARTMENT OF PATHOLOGY, [address] [place] [address] Tee Cuevas M.D. Director [facility] # [id number] Procedures Date CPT Code Description Status 09/29/2017 33373 Therapeutic,Prophylactic,Or Diagnostic Inj,SC/Im Completed Specify Drug 04/30/2017 07982 Therapeutic,Prophylactic,Or Diagnostic Inj,SC/Im Completed Specify Drug 07/27/2014 88277 EKG, at Least 12 Leads w/Interpretation and Report Completed Encounters Type Date Location Provider CPT E/M Dx Office Visit 09/29/2017 9:45a [place] [address] R51 Office Visit 06/28/2017 4:45p [place] [address] R51 F32.9 Office Visit 05/25/2017 2:15p Main Office JOSE DAVID Chavez 39230 R51 R55 M79.1 Office Visit 05/14/2017 9:30a Main Office JOSE DAVID Chavez 97728 R51 R55 M79.1 Office Visit 04/30/2017 3:30p Main Office JOSE DAVID Chavez 94428 R51 Z23 Office Visit 11/18/2016 10:45a Main Office JOSE DAVID Chavez 82640 M25.50 R55 Office Visit 2016 10:15a Main Office NORI Chavez-C 29669 A69.20 M25.50 Office Visit 04/09/2016 8:45a Main Office Grace Madrigal [employer]ACHINE [employer]ER-C 87358 M25.50 M79.1 Office Visit 02/24/2016 1:30p Main Office NORI Chavez-C 99309 Z00.00 M25.50 M79.1 Z11.3 Z23 V06.1 Office Visit 12/07/2014 1:30p Main Office Grace Madrigal [employer]ACHINE [employer]-C 20933 V70.0 Office Visit 10/24/2014 4:15p Main Office Grace Madrigal [employer]ACHINE [employer]-C 29921 088.81 Office Visit 09/28/2014 11:30a Main Office Grace Madrigal [employer] MACHINE [employer]-C 12752 088.81 Office Visit 07/27/2014 3:30p Main Office Grace Madrigal [employer]ACH[employer]-C 65703 786.59 780.4 Office Visit 07/23/2014 2:30p Main Office Grace Madrigal [employer]ACHINE [employer]C 50535 311 300.00 Office Visit 07/04/2014 3:00p Main Office Grace Madrigal [employer]C 18167 300.00 311 Office Visit 06/13/2014 4:15p Main Office Grace Madrigal [employer]ACHINE [employer]C 52234 041.19 311 Office Visit 06/06/2014 8:00a Main Office Grace Madrigal [employer]ACHINE [employer]-C 18213 041.19 788.41 785.6 Office Visit 11/10/2013 11:30a Main Office Grace Madrigal [employer]-C 11763 V65.9 Office Visit 10/16/2013 8:00a Main Office Grace Madrigal [employer] MACHINE [employer]-C 92460 V70.0 719.69 784.0 724.2 V17.49 Plan of Care 11/11/2017 - Tc Serrano, MDR51 HeadacheComments:Has been having intermittent headaches. His BP has been under good control. Only some of them seem to be migrainous, there are likely multiple causes for his GERMAIN's. Feels like he is doing better off the SSRI. Magnesium hay have some GERMAIN benefit as well.G47.00 Insomnia, unspecifiedNew Medication:Magnesium 300 mgComments:Trial of magnesium. Discussed likely side effects. The idea is to hopefully spare dosing of robaxin.J04.0 Acute laryngitisComments:Upper respiratory infection. No historical or physical evidence of serious or bacterial infection.Recommended continued use of OTC meds for symptom control, hydration, rest, and discussed alarm symptoms.
[2017-11-19] MEDS ORDERED: Gabapentin CAP(*) 300 MG PO ONE (23:53)
--- NOTE | 2017-11-19 23:53 | ED ---
Substance Abuse/Use - HPI Summary HPI Summary: This is scribe Ramona Alaniz documenting for attending Dr. Alberto Dang MD. Patient is a 27 year old male who presents to the ed with a chief complaint of substance abuse. He used heroin laced with fentanyl and cocaine. He smokes, shoots, and snorts the drugs. Hes been doing it every day for the past few weeks, and wants to stop using because his friend overdosed tonight. He has tried to stop before, used to use it as pain medication at night time, says the prescriptions are just not enough. He has chronic joint pain and lyme disease, self-medicates and cracks his joints to get rid of the pain. Injection sites on forearms are red, do not look infected. Patient is having anxiety about legal ramifications. I, Dr. Dang, personally performed the services described in this documentation as scribed in my presence and it is both accurate and complete. - History Of Current Complaint Chief Complaint: EDDetoxRequest Stated Complaint: DETOX Hx Obtained From: Patient Onset/Duration of Drug/ETOH Abuse: Days Ingestion History: Type/Name Of Drug - heroin laced with fentanyl, cocaine. Overdose Characteristics: Inhalation, IV, Other - snorting Character: Anxious, Other - wants to stop using Aggravating Factor(s): Recent Stress - friend overdosed tonight - Allergies/Home Medications Allergies/Adverse Reactions: Allergies Allergy/AdvReac Type Severity Reaction Status Date / Time latex Allergy Rash Verified 09/26/17 04:25 Sulfa (Sulfonamide Allergy Unknown Verified 09/26/17 04:25 Antibiotics) Reaction Details PMH/Surg Hx/FS Hx/Imm Hx Previously Healthy: No Endocrine/Hematology History: Denies: Hx Anticoagulant Therapy, Hx Blood Disorders, Hx Anemia, Hx Unexplained Bleeding Cardiovascular History: Denies: Hx Pacemaker/ICD Respiratory History: Denies: Hx Chronic Obstructive Pulmonary Disease (COPD) Sensory History: Denies: Hx Hearing Aid Neurological History: Reports: Hx Migraine Comment Only: Other Neuro Impairments/Disorders - H/o BACK PAIN, per pt Tourette's syndrome, syncope Psychiatric History: Reports: Hx Substance Abuse Denies: Hx Attention Deficit Hyperactivity Disorder, Hx Panic Disorder Infectious Disease History: No Infectious Disease History: Reports: History Other Infectious Disease - Lyme dz , recurring Denies: Traveled Outside the [place] in Last 30 Days - Family History Known Family History: Positive: Cardiac Disease - KS's in 40's, Diabetes, Respiratory Disease - COPD - Social History 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 Alcohol Use: Occasionally Hx Substance Use: Yes Substance Use Type: Reports: Cocaine, Heroin, Marijuana - occasionally Substance Use Comment - Amount & Last Used: today, unsure amount used Smoking Status (MU): Former Smoker Review of Systems Negative: Fever Positive: Other - Abusing drugs All Other Systems Reviewed And Are Negative: Yes Physical Exam - Summary Physical Exam Summary: Appearance: Well-appearing, Well-nourished, sitting in bed comfortable Skin: Warm, dry, no obvious rash Eyes: sclera anicteric, no conjunctival pallor ENT: mucous membranes moist Neck: deferred Respiratory: No signs of respiratory distress Cardiovascular: Appears well perfused, pulses are nml Abdomen: deferred Musculoskeletal: Erythema swelling warmth to the distal arm around the popliteal fossa, without streaking and and no fluctuance. Neurological: Awake and alert, mentation is normal, speech is fluent and appropriate Psychiatric: affect is normal, does not appear anxious or depressed Triage Information Reviewed: Yes Vital Signs On Initial Exam: Initial Vitals Temp Pulse Resp BP Pulse Ox 97.9 F 81 18 136/80 98 11/19/17 23:14 11/19/17 23:14 11/19/17 23:14 11/19/17 23:14 11/19/17 23:14 Vital Signs Reviewed: Yes Diagnostics - Vital Signs Vital Signs Temp Pulse Resp BP Pulse Ox 11/19/17 23:14 97.9 F 81 18 136/80 98 - Laboratory Lab Statement: Any lab studies that have been ordered have been reviewed, and results considered in the medical decision making process. Course/Dx - Diagnoses Provider Diagnoses: Cellulitis, upper arm, Opioid dependence Discharge - Sign-Out/Discharge Documenting (check all that apply): Patient Departure - [place] - Discharge Plan Condition: Good Disposition: HOME Prescriptions: Cephalexin CAP* [Keflex CAP*] 500 mg PO QID #28 cap Gabapentin CAP(*) [Neurontin 400 mg CAP(*)] 800 mg PO BID #60 cap Patient Education Materials: Opioid Dependence (ED), Opioid Withdrawal (ED), Safe Use of Opioids (ED) Referrals: Tc Serrano MD [Primary Care Provider] - Additional Instructions: Your best local resource is the [facility], contact them at [phone], they are at [address] [place] [address] in [place]. - Billing Disposition and Condition Condition: GOOD Disposition: Home
[2017-11-19] MEDS ORDERED: Cephalexin CAP* 500 MG PO ONE (23:54)
[2017-11-20 00:27] VITALS: BP 136/82
== END 2017-11-20 00:29 | disposition home or self-care (01) ==
LOC: ED 23:12
DX: L03.114 Cellulitis of left upper limb (principal); L03.113 Cellulitis of right upper limb; F11.20 Opioid dependence, uncomplicated; F14.20 Cocaine dependence, uncomplicated; Z88.2 Allergy status to sulfonamides; Z91.040 Latex allergy status; Z82.49 Family history of ischemic heart disease and other diseases of the circulatory system; Z83.3 Family history of diabetes mellitus; Z83.6 Family history of other diseases of the respiratory system; Z87.891 Personal history of nicotine dependence
CPT/HCPCS: 99282; A9270-GY

== ENCOUNTER → 2018-02-10 07:58 | Emergency (ER) | payer OTHER ==
[~2018-02-10 07:58] MED LIST: Al Hydrox/Mg Hydrox/Simet LIQ* 30 ML UDC PO ONE; Lidocaine 2% VISCOUS* 15 ML UDC PO ONE; NS 0.9% 1000 ML* 1,000 ML IV ONE; Ondansetron INJ* 2 MG/ML VIAL IV ONE
--- NOTE | 2018-02-10 08:29 | ED ---
Complex/Multi-Sys Presentation - HPI Summary HPI Summary: Patient is a 27-year-old male who presents to the ER for sore throat, N/V/D x 1 days. 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 He was not wearing mask. He state that today when he woke up his throat felt sore and tight and he had N/V/D. Admits to acid reflux and epigastric discomfort but otherwise denies abd. pain. No past medical history. Denies fever, cough, CP, SOB> Pt. states his mother was sick with similar sxs last week but he was not around her much. Symptoms are moderate in severity. No current modifying factors. - History Of Current Complaint Chief Complaint: EDGeneral Time Seen by Provider: 02/10/18 08:06 Hx Obtained From: Patient - Allergies/Home Medications Allergies/Adverse Reactions: Allergies Allergy/AdvReac Type Severity Reaction Status Date / Time latex Allergy Rash Verified 02/10/18 08:15 Sulfa (Sulfonamide Allergy Unknown Verified 02/10/18 08:15 Antibiotics) Reaction Details PMH/Surg Hx/FS Hx/Imm Hx Previously Healthy: Yes Endocrine/Hematology History: Denies: Hx Anticoagulant Therapy, Hx Blood Disorders, Hx Anemia, Hx Unexplained Bleeding Cardiovascular History: Denies: Hx Pacemaker/ICD Respiratory History: Denies: Hx Chronic Obstructive Pulmonary Disease (COPD) Sensory History: Denies: Hx Hearing Aid Neurological History: Reports: Hx Migraine Comment Only: Other Neuro Impairments/Disorders - H/o BACK PAIN, per pt Tourette's syndrome, syncope Psychiatric History: Reports: Hx Substance Abuse Denies: Hx Attention Deficit Hyperactivity Disorder, Hx Panic Disorder - Immunization History Immunizations Up to Date: Yes Infectious Disease History: No Infectious Disease History: Reports: History Other Infectious Disease - Lyme dz , recurring Denies: Traveled Outside the [place] in Last 30 Days - Family History Known Family History: Positive: Cardiac Disease - [place]'s in 40's, Diabetes, Respiratory Disease - COPD - Social History Occupation: Employed Full-time Lives: With Family Alcohol Use: Occasionally Hx Substance Use: Yes Substance Use Type: Reports: Cocaine, Heroin, Marijuana Substance Use Comment - Amount & Last Used: today, unsure amount used Smoking Status (MU): Former Smoker Review of Systems Positive: Fever, Chills Eyes: Negative Positive: Sore Throat Cardiovascular: Negative Negative: Chest Pain Respiratory: Negative Positive: Abdominal Pain, Vomiting, Diarrhea, Nausea Genitourinary: Negative Musculoskeletal: Negative Skin: Negative Neurological: Negative All Other Systems Reviewed And Are Negative: Yes Physical Exam Triage Information Reviewed: Yes Vital Signs On Initial Exam: Initial Vitals Temp Pulse Resp BP Pulse Ox 97.8 F 84 18 137/78 95 02/10/18 08:00 02/10/18 08:00 02/10/18 08:00 02/10/18 08:00 02/10/18 08:00 Vital Signs Reviewed: Yes Appearance: Positive: Well-Appearing - Patient lying in bed in no acute distress. Skin: Positive: Warm, Dry Head/Face: Positive: Normal Head/Face Inspection Eyes: Positive: Normal, EOMI, PAYAL ENT: Positive: TMs normal, Other - Oral phyarnx injected without tonilar edema or erythema. Respiratory/Lung Sounds: Positive: Clear to Auscultation, Breath Sounds Present Cardiovascular: Positive: Normal, RRR Abdomen Description: Positive: Nontender, Soft Neurological: Positive: Normal, CN Intact II-III Psychiatric: Positive: Affect/Mood Appropriate Diagnostics - Vital Signs Vital Signs Temp Pulse Resp BP Pulse Ox 02/10/18 08:21 83 96 02/10/18 08:20 96 120/79 96 02/10/18 08:00 97.8 F 84 18 137/78 95 - Laboratory Result Diagrams: 02/10/18 08:36 02/10/18 08:36 Lab Statement: Any lab studies that have been ordered have been reviewed, and results considered in the medical decision making process. Complex Multi-Symp Course/Dx Course Of Treatment: Pt. presenting with the above sxs. He is afebrile with stable VS. He has a benign abd. exam. Will check basic labs and give iv fluids, zofran and gi cocktail. Blood work is unremarkable. ON re-exam pt. states he is feeling a bit better. he is tolerating PO and has had no vomiting or BM in ER. Will dc home with zofran and pepcid. Advised to increase fluids. Close fu with pcp and return to ER if sxs change or worsen. Pt. understands and agrees with plan. - Diagnoses Provider Diagnoses: Vomiting and diarrhea, Sore throat Discharge - Sign-Out/Discharge Documenting (check all that apply): Patient Departure - Discharge Plan Condition: Good Disposition: HOME Prescriptions: Famotidine [Pepcid] 20 mg PO BID #20 tablet Ondansetron TAB* [Zofran 4 MG Tab*] 4 mg PO Q6H PRN #12 tab PRN Reason: Nausea Patient Education Materials: Gastroenteritis (ED) Referrals: Tc Serrano MD [Primary Care Provider] - Additional Instructions: Schedule a close follow up appointment with your PCP Medication as directed Increase fluids Return to ER if symptoms change or worsen - Billing Disposition and Condition Condition: GOOD Disposition: Home
[2018-02-10 08:51] LABS: ABS Basophils 0 10^3/ul (0-0.2); ABS Eosinophils 0 10^3/ul (0-0.6); ABS Lymphocytes 1.6 10^3/ul (1.0-4.8); ABS Monocytes 0.5 10^3/ul (0-0.8); ABS Neutrophils 6.3 10^3/ul (1.5-7.7); ABS Nucleated RBC 0 10^3/ul; Eosinophil % 0.1 % (0-6); Hematocrit 49 % (42-52); Hemoglobin 16.8 g/dl (14.0-18.0); Lymphocyte % 18.8 % (25-47); Mean Corpuscular HGB Conc 34 g/dl (31-36); Mean Corpuscular Hemoglobin 31 pg (27-31); Mean Corpuscular Volume 89 fL (80-94); Mean Platelet Volume 7.9 um3 (7.4-10.4); Nucleated Red Blood Cells % 0.1; Platelet Count 216 10^3/ul (150-450); Red Cell Distribution Width 13 % (10.5-15); White Blood Count 8.5 10^3/ul (3.5-10.8)
[2018-02-10 09:06] LABS: EGFR Non-African American 128.9 (>60)
[2018-02-10 10:51] VITALS: BP 114/70
== END | disposition home or self-care (01) ==
LOC: ED 07:58
DX: R11.10 Vomiting, unspecified (principal); R19.7 Diarrhea, unspecified; J02.9 Acute pharyngitis, unspecified; Z88.2 Allergy status to sulfonamides; Z91.040 Latex allergy status; Z87.891 Personal history of nicotine dependence
CPT/HCPCS: 36415; 80053; 83690; 85025; 96374; 99283; A9270-GY; J2405

== ENCOUNTER 2018-12-28 07:51 | Emergency (ER) | payer OTHER ==
[2018-12-28 08:27] LABS: ABS Lymphocytes 1.4 10^3/ul (1.0-4.8); ABS Monocytes 0.4 10^3/ul (0-0.8); ABS Neutrophils 4.7 10^3/ul (1.5-7.7); Eosinophil % 0.4 %; Hematocrit 43 % (42-52); Hemoglobin 14.6 g/dL (14.0-18.0); Lymphocyte % 20.8 %; Mean Corpuscular HGB Conc 34 g/dL (31-36); Mean Corpuscular Hemoglobin 29 pg (27-31); Mean Corpuscular Volume 85 fL (80-94); Mean Platelet Volume 7.2 fL (7.4-10.4); Nucleated Red Blood Cells % 0.3; Platelet Count 331 10^3/uL (150-450); Red Blood Count 5.06 10^6 /uL (4.18-5.48); Red Cell Distribution Width 13 % (10-15); White Blood Count 6.6 10^3/uL (3.5-10.8)
[2018-12-28 08:33] LABS: INR 1.06 (0.82-1.09)
--- NOTE | 2018-12-28 08:37 | ED ---
HPI Chest Pain - HPI Summary HPI Summary: This patient is a 28 year old M presenting to ED with a chief complaint of chest pain since this morning. The chest pain is described as a sharp tightness , similar to the chest muscle pain he was seen for 7 years ago. Patient reports the pain as excruciating, rating it 7/10 in severity. Patient also reports fatigue and feeling cold. Symptoms aggravated by movement and deep breathing. Symptoms alleviated by nothing. Patient was evaluated in subwaiting. - History of Current Complaint Chief Complaint: EDChestPainROMI Hx Obtained From: Patient Onset/Duration: Started Hours Ago - This morning, Still Present Timing: Constant, Lasting Hours - Since this morning Current Severity: Severe - "Excruciating" Pain Intensity: 7 Pain Scale Used: 0-10 Numeric Character: Sharp/Stabbing, Tightness Aggravating Factor(s): Movement, Deep Breaths Alleviating Factor(s): Nothing Associated Signs and Symptoms: Positive: Other: - Fatigue, "feeling cold" - Allergy/Home Medications Allergies/Adverse Reactions: Allergies Allergy/AdvReac Type Severity Reaction Status Date / Time latex Allergy Rash Verified 02/10/18 08:15 Sulfa (Sulfonamide Allergy Unknown Verified 02/10/18 08:15 Antibiotics) Reaction Details Home Medications: Home Medications NK [No Home Medications Reported] 12/28/18 [History Confirmed 12/28/18] PMH/Surg Hx/FS Hx/Imm Hx Endocrine/Hematology History: Denies: Hx Anticoagulant Therapy, Hx Blood Disorders, Hx Anemia, Hx Unexplained Bleeding Cardiovascular History: Denies: Hx Pacemaker/ICD Respiratory History: Denies: Hx Chronic Obstructive Pulmonary Disease (COPD) Sensory History: Denies: Hx Hearing Aid Neurological History: Reports: Hx Migraine Comment Only: Other Neuro Impairments/Disorders - H/o BACK PAIN, per pt Tourette's syndrome, syncope Psychiatric History: Reports: Hx Substance Abuse Denies: Hx Attention Deficit Hyperactivity Disorder, Hx Panic Disorder - Surgical History Surgery Procedure, Year, and Place: denies Infectious Disease History: No Infectious Disease History: Reports: History Other Infectious Disease - Lyme dz , recurring Denies: Traveled Outside the [place] in Last 30 Days - Family History Known Family History: Positive: Cardiac Disease - [place]'s in 40's, Diabetes, Respiratory Disease - COPD - Social History Alcohol Use: Rare Hx Substance Use: Yes Substance Use Type: Reports: Cocaine, Heroin, Marijuana Substance Use Comment - Amount & Last Used: today, unsure amount used Hx Tobacco Use: Yes Smoking Status (MU): Former Smoker Review of Systems Constitutional: Other - "feeling cold" Positive: Fatigue Positive: Chest Pain All Other Systems Reviewed And Are Negative: Yes Physical Exam - Summary Physical Exam Summary: VITAL SIGNS: Reviewed. GENERAL: Patient is a well-developed and nourished male who is lying comfortable in the stretcher. Patient is not in any acute respiratory distress. HEAD AND FACE: No signs of trauma. No ecchymosis, hematomas or skull depressions. No sinus tenderness. EYES: PERRLA, EOMI x 2, No injected conjunctiva, no nystagmus. EARS: Hearing grossly intact. Ear canals and tympanic membranes are within normal limits. MOUTH: Oropharynx within normal limits. NECK: Supple, trachea is midline, no adenopathy, no JVD, no carotid bruit, no c- spine tenderness, neck with full ROM. CHEST: Reproducible chest pain LUNGS: Clear to auscultation bilaterally. No wheezing or crackles. CVS: Regular rate and rhythm, S1 and S2 present, no murmurs or gallops appreciated. ABDOMEN: Soft, non-tender. No signs of distention. No rebound, no guarding, and no masses palpated. Bowel sounds are normal. EXTREMITIES: FROM in all major joints, no edema, no cyanosis or clubbing. NEURO: Alert and oriented x 3. No acute neurological deficits. Speech is normal and follows commands. SKIN: Dry and warm. Triage Information Reviewed: Yes Vital Signs On Initial Exam: Initial Vitals Temp Pulse Resp BP Pulse Ox 98.1 F 79 14 130/60 100 12/28/18 07:53 12/28/18 07:53 12/28/18 07:53 12/28/18 07:53 12/28/18 07:53 Vital Signs Reviewed: Yes Diagnostics - Vital Signs Vital Signs Temp Pulse Resp BP Pulse Ox 12/28/18 08:20 98 12/28/18 08:12 19 128/68 12/28/18 08:10 22 125/71 12/28/18 08:08 79 15 100 12/28/18 07:53 98.1 F 79 14 130/60 100 - Laboratory Lab Results: Lab Results 12/28/18 12/28/18 Range/Units 08:13 08:13 WBC 6.6 (3.5-10.8) 10^3/uL RBC 5.06 (4.18-5.48) 10^6 /uL Hgb 14.6 (14.0-18.0) g/dL Hct 43 (42-52) % MCV 85 (80-94) fL MCH 29 (27-31) pg MCHC 34 (31-36) g/dL RDW 13 (10-15) % Plt Count 331 (150-450) 10^3/uL MPV 7.2 L (7.4-10.4) fL Neut % (Auto) 71.8 % Lymph % (Auto) 20.8 % Real % (Auto) 6.6 % Eos % (Auto) 0.4 % Baso % (Auto) 0.4 % Absolute Neuts (auto) 4.7 (1.5-7.7) 10^3/ul Absolute Lymphs (auto) 1.4 (1.0-4.8) 10^3/ul Absolute Monos (auto) 0.4 (0-0.8) 10^3/ul Absolute Eos (auto) 0.0 (0-0.6) 10^3/ul Absolute Basos (auto) 0.0 (0-0.2) 10^3/ul Absolute Nucleated RBC 0.0 10^3/ul Nucleated RBC % 0.3 INR (Anticoag Therapy) 1.06 (0.82-1.09) Result Diagrams: 12/28/18 08:13 12/28/18 08:13 Lab Statement: Any lab studies that have been ordered have been reviewed, and results considered in the medical decision making process. - Radiology CXR Radiology Interpretation Completed By: Radiologist Summary of Radiographic Findings: No acute cardiopulmonary process by radiograph. Dr. Moore has reviewed this radiology report. - EKG 0751 Cardiac Rate: NL - 86 BPM EKG Rhythm: Sinus Rhythm ST Segment: Normal Ectopy: None Summary of EKG Findings: NSR at 86 BPM, no STEMI. Re-Evaluation - Re-Evaluation First Eval Re-Evaluation Time: 10:30 Comment: Discussed results with patient. Patient will be discharged home with dx of atypical chest pain. Patient understands and agrees with this plan. Chest Pain Course/Dx - Course Assessment/Plan: This patient is a 28 year old M presenting to ED with a chief complaint of chest pain since this morning. The chest pain is described as a sharp tightness, similar to the chest muscle pain he was seen for 7 years ago. Patient reports the pain as excruciating, rating it 7/10 in severity. Patient also reports fatigue and feeling cold. Symptoms aggravated by movement and deep breathing. Symptoms alleviated by nothing. Patient was evaluated in subwaiting. Chest x-ray impression: No acute cardiopulmonary process. Blood test results without any significant abnormality except for glucose of 106. The troponin 0.00. In the ED course the patient was given Toradol and after these medications the symptoms have subsided. The patient doesnt have any comorbidities for acute coronary syndrome. Heart score is equal to 0 therefore no suspicion for an acute coronary syndrome. Therefore the patient was discharged home with follow-up with PCP. Patient is hemodynamically stable alert and oriented 3. - Diagnoses Provider Diagnoses: Atypical chest pain Discharge ED - Sign-Out/Discharge Documenting (check all that apply): Patient Departure - Discharge Patient Received Moderate/Deep Sedation with Procedure: No - Discharge Plan Condition: Stable Disposition: HOME Patient Education Materials: Chest Pain (ED) Referrals: Tc Serrano MD [Primary Care Provider] - 3 Days Additional Instructions: FOLLOW UP WITH YOUR PRIMARY CARE PROVIDER WITHIN ONE WEEK. RETURN TO THE ED FOR ANY WORSENING OR NEW SYMPTOMS. - Billing Disposition and Condition Condition: STABLE Disposition: Home - Attestation Statements Document Initiated by Raymon: Yes Documenting Scribe: Oswald Owens Provider For Whom Raymon is Documenting (Include Credential): Papo Moore MD Scribe Attestation: Oswald Sharma scribed for Papo Moore MD on 12/28/18 at 1820. Scribe Documentation Reviewed: Yes Provider Attestation: The documentation as recorded by the Oswald frias accurately reflects the service I personally performed and the decisions made by me, Papo Moore MD Status of Scribe Document: Viewed
[2018-12-28 08:45] LABS: Albumin 4.2 g/dL (3.2-5.2); Albumin/Globulin Ratio 1.4 (1-3); Calcium 9.5 mg/dL (8.6-10.3); Potassium 3.9 mmol/L (3.5-5.0); Total Bilirubin 0.4 mg/dL (0.2-1.0); Total Protein 7.2 g/dL (6.4-8.9)
[2018-12-28] MEDS ORDERED: Ketorolac INJ* 30 MG/ML 1 ML VIAL IV PUSH ONE (09:39)
[2018-12-28 10:22] LABS: HIV 4th Generation Nonreactive (Nonreactive)
[2018-12-28 10:37] LABS: Urine Appearance Clear; Urine Bacteria Absent (Absent); Urine Bilirubin Negative (Negative); Urine Blood Negative (Negative); Urine Color Yellow; Urine Glucose Negative (Negative); Urine Ketones Trace (Negative); Urine Nitrite Negative (Negative); Urine Protein Negative (Negative); Urine Red Blood Cell Trace(0-2/hpf) (Absent); Urine Specific Gravity 1.009 (1.010-1.030); Urine Squamous Epithelial Cell Present (Absent); Urine Urobilinogen Negative (Negative); Urine White Blood Cell Trace(0-5/hpf) (Absent)
[2018-12-28 10:50] VITALS: BP 115/63
== END 2018-12-28 10:49 | disposition home or self-care (01) ==
LOC: ED 07:51
DX: R07.89 Other chest pain (principal); Z87.891 Personal history of nicotine dependence; Z88.2 Allergy status to sulfonamides; Z91.040 Latex allergy status
CPT/HCPCS: 36415; 71045; 80053; 81003; 82550; 82553; 84484; 85025; 85610; 87086; 87389; 93005; 96374; 99283; J1885

== ENCOUNTER 2019-06-12 08:40 | Emergency (ER) | payer OTHER ==
--- NOTE | 2019-06-12 09:47 | ED ---
Complex/Multi-Sys Presentation - HPI Summary HPI Summary: Patient is a 29-year-old male who presents emergency department for complaints of ongoing sore throat and fatigue times one month. Past medical history of IV drug use. Patient notes chills without fever. Denies cough, chest pain, shortness of breath, abdominal pain. Notes intermittent nausea and vomiting. Denies rash, neck pain, headache, dysuria. Symptoms are [id number] in severity. No current modifying factors. - History Of Current Complaint Chief Complaint: EDGeneral Time Seen by Provider: 06/12/19 09:32 Hx Obtained From: Patient - Allergies/Home Medications Allergies/Adverse Reactions: Allergies Allergy/AdvReac Type Severity Reaction Status Date / Time latex Allergy Rash Verified 06/12/19 08:42 Sulfa (Sulfonamide Allergy Unknown Verified 06/12/19 08:42 Antibiotics) Reaction Details Home Medications: Home Medications NK [No Home Medications Reported] 06/12/19 [History Confirmed 06/12/19] PMH/Surg Hx/FS Hx/Imm Hx Previously Healthy: Yes Endocrine/Hematology History: Denies: Hx Anticoagulant Therapy, Hx Blood Disorders, Hx Anemia, Hx Unexplained Bleeding Cardiovascular History: Denies: Hx Pacemaker/ICD Respiratory History: Denies: Hx Chronic Obstructive Pulmonary Disease (COPD) Sensory History: Denies: Hx Hearing Aid Neurological History: Reports: Hx Migraine Comment Only: Other Neuro Impairments/Disorders - H/o BACK PAIN, per pt Tourette's syndrome, syncope Psychiatric History: Reports: Hx Substance Abuse Denies: Hx Attention Deficit Hyperactivity Disorder, Hx Panic Disorder - Surgical History Surgery Procedure, Year, and Place: denies Infectious Disease History: No Infectious Disease History: Reports: History Other Infectious Disease - Lyme dz , recurring Denies: Traveled Outside the [place] in Last 30 Days - Family History Known Family History: Positive: Cardiac Disease - [place]'s in 40's, Diabetes, Respiratory Disease - COPD, Non-Contributory - Social History Occupation: Employed Part-time Lives: With Family Alcohol Use: Rare Hx Substance Use: Yes Substance Use Type: Reports: Cocaine, Heroin, Marijuana Substance Use Comment - Amount & Last Used: today, unsure amount used Hx Tobacco Use: Yes Smoking Status (MU): Former Smoker Review of Systems Positive: Chills. Negative: Fever Positive: Sore Throat Cardiovascular: Negative Negative: Palpitations, Chest Pain Respiratory: Negative Negative: Shortness Of Breath, Cough Positive: Nausea. Negative: Abdominal Pain, Vomiting, Diarrhea Genitourinary: Negative Negative: dysuria, flank pain Musculoskeletal: Negative Skin: Negative Neurological/Mental Status: Negative All Other Systems Reviewed And Are Negative: Yes Physical Exam Triage Information Reviewed: Yes Vital Signs On Initial Exam: Initial Vitals Temp Pulse Resp BP Pulse Ox 98.1 F 78 18 132/97 98 06/12/19 08:42 06/12/19 08:42 06/12/19 08:42 06/12/19 08:42 06/12/19 08:42 Vital Signs Reviewed: Yes Appearance: Positive: Well-Appearing - Patient lying in bed in no acute distress. Skin: Positive: Warm, Dry Head/Face: Positive: Normal Head/Face Inspection Eyes: Positive: Normal, EOMI, PAYAL, Conjunctiva Clear ENT: Positive: Pharynx normal, TMs normal. Negative: Tonsillar swelling, Tonsillar exudate Neck: Positive: Supple, Nontender. Negative: No Lymphadenopathy, Nuchal Rigidity Respiratory/Lung Sounds: Positive: Clear to Auscultation, Breath Sounds Present. Negative: Rales, Rhonchi, Wheezes Cardiovascular: Positive: Normal, RRR. Negative: Murmur Abdomen Description: Positive: Nontender, Soft Musculoskeletal: Positive: Normal, Strength/ROM Intact Neurological: Positive: Normal, CN Intact II-III Psychiatric: Positive: Affect/Mood Appropriate Procedures - Sedation Patient Received Moderate/Deep Sedation with Procedure: No Diagnostics - Vital Signs Vital Signs Temp Pulse Resp BP Pulse Ox 06/12/19 08:42 98.1 F 78 18 132/97 98 - Laboratory Result Diagrams: 06/12/19 10:23 06/12/19 10:23 Lab Statement: Any lab studies that have been ordered have been reviewed, and results considered in the medical decision making process. Complex Multi-Symp Course/Dx Course Of Treatment: Patient was complaints ongoing fatigue, sore throat. He is afebrile ER stable vital signs. Benign exam. Blood work is unremarkable other than mildly elevated CR pain. Negative strep and influenza. Chest x-ray negative for acute findings per radiology. We'll refer patient back to his family doctor for further evaluation. Tylenol or Motrin for discomfort as directed. We'll return to the ER symptoms change or worsen. Patient understands and agrees with plan. - Diagnoses Provider Diagnoses: Fatigue, Sore throat Discharge ED - Sign-Out/Discharge Documenting (check all that apply): Patient Departure - Discharge Plan Condition: Good Disposition: HOME Patient Education Materials: Fatigue (ED) Referrals: Tc Serrano MD [Primary Care Provider] - Additional Instructions: Please schedule a follow up appointment with your PCP for further evaluation Increase fluids and rest Tylenol or Motrin for discomfort as directed Return to ER if symptoms change or worsen - Billing Disposition and Condition Condition: GOOD Disposition: Home - Attestation Statements Provider Attestation: I was available for consult. This patient was seen by the IGNACIO. The patient was not presented to, seen by, or examined by me. -Juan
[2019-06-12] MEDS ORDERED: Acetaminophen TAB* 325 MG PO ONE (09:49)
[2019-06-12 10:10] LABS: Rapid Strep Molecular Negative (Negative)
[2019-06-12 10:22] LABS: Influenza A Molecular Negative (Negative); Influenza B Molecular Negative (Negative)
[2019-06-12 10:41] LABS: ABS Lymphocytes 1.1 10^3/ul (1.0-4.8); ABS Monocytes 0.5 10^3/ul (0-0.8); ABS Neutrophils 3.6 10^3/ul (1.5-7.7); Eosinophil % 0.4 %; Hematocrit 47 % (42-52); Hemoglobin 15.7 g/dL (14.0-18.0); Lymphocyte % 20.8 %; Mean Corpuscular HGB Conc 34 g/dL (31-36); Mean Corpuscular Hemoglobin 29 pg (27-31); Mean Corpuscular Volume 85 fL (80-94); Mean Platelet Volume 8.1 fL (7.4-10.4); Nucleated Red Blood Cells % 0.1; Platelet Count 198 10^3/uL (150-450); Red Blood Count 5.48 10^6 /uL (4.18-5.48); Red Cell Distribution Width 15 % (10-15); White Blood Count 5.2 10^3/uL (3.5-10.8)
[2019-06-12 11:01] LABS: Albumin 4.5 g/dL (3.2-5.2); Albumin/Globulin Ratio 1.5 (1-3); C Reactive Protein 47.91 mg/L (<8.01); Calcium 9.5 mg/dL (8.6-10.3); EGFR African American 165.2 (>60); EGFR Non-African American 136.5 (>60); Potassium 3.8 mmol/L (3.5-5.0); Total Bilirubin 0.4 mg/dL (0.2-1.0); Total Protein 7.5 g/dL (6.4-8.9)
[2019-06-12 11:38] LABS: HIV 4th Generation Nonreactive (Nonreactive)
[2019-06-12] MEDS ORDERED: Ondansetron TAB* 4 MG PO ONE (12:09)
[2019-06-12 12:11] VITALS: BP 123/76
== END 2019-06-12 12:20 | disposition home or self-care (01) ==
LOC: ED 08:40
DX: J02.9 Acute pharyngitis, unspecified (principal); R53.83 Other fatigue; R11.0 Nausea; Z87.891 Personal history of nicotine dependence; Z88.2 Allergy status to sulfonamides
CPT/HCPCS: 36415; 71046; 80053; 85025; 86140; 87389; 87651; 99283; A9270-GY

== ENCOUNTER 2019-06-20 23:03 | Emergency (ER) | payer OTHER ==
--- NOTE | 2019-06-20 23:19 | ED ---
Substance Abuse/Use - HPI Summary HPI Summary: Patient is a 29 y/o M presenting to [facility] accompanied by patrol police lieutenant for legal blood draw. Officer reports that the patient was found to be driving while intoxicated. No physical complaints stated. Hx of IV drug abuse and migraines noted. Patient is a former smoker and denies alcohol and recreational substance usage. Home medications and allergies are reviewed. - History Of Current Complaint Chief Complaint: EDGeneral Stated Complaint: LEGALLY DRAW PER POLICE Time Seen by Provider: 06/20/19 23:12 Hx Obtained From: Patient, Other: - patrol police lieutenant Ingestion History: Type/Name Of Drug - reported alcohol per officer Overdose Characteristics: Oral Aggravating Factor(s): Nothing Alleviating Factor(s): Nothing Associated Signs And Symptoms: Negative - Allergies/Home Medications Allergies/Adverse Reactions: Allergies Allergy/AdvReac Type Severity Reaction Status Date / Time latex Allergy Rash Verified 06/12/19 08:42 Sulfa (Sulfonamide Allergy Unknown Verified 06/12/19 08:42 Antibiotics) Reaction Details Home Medications: Home Medications Buprenorphine HCl/Naloxone HCl [Buprenorp-Nalox 8-2 mg Sl Film] 06/20/19 [ History] Nabumetone 06/20/19 [History] methocarbamoL [Methocarbamol] 06/20/19 [History] PMH/Surg Hx/FS Hx/Imm Hx Endocrine/Hematology History: Denies: Hx Anticoagulant Therapy, Hx Blood Disorders, Hx Anemia, Hx Unexplained Bleeding Cardiovascular History: Denies: Hx Pacemaker/ICD Respiratory History: Denies: Hx Chronic Obstructive Pulmonary Disease (COPD) Sensory History: Denies: Hx Hearing Aid Neurological History: Reports: Hx Migraine Comment Only: Other Neuro Impairments/Disorders - H/o BACK PAIN, per pt Tourette's syndrome, syncope Psychiatric History: Reports: Hx Substance Abuse Denies: Hx Attention Deficit Hyperactivity Disorder, Hx Panic Disorder - Surgical History Surgery Procedure, Year, and Place: denies Infectious Disease History: No Infectious Disease History: Reports: History Other Infectious Disease - Lyme dz , recurring Denies: Traveled Outside the [place] in Last 30 Days - Family History Known Family History: Positive: Cardiac Disease - [place]'s in 40's, Diabetes, Respiratory Disease - COPD - Social History Alcohol Use: None Hx Substance Use: Yes Substance Use Type: Reports: None Substance Use Comment - Amount & Last Used: today, unsure amount used Hx Tobacco Use: Yes Smoking Status (MU): Former Smoker - Additional Comments History Additional Comments: PMHx of substance abuse, migraines Review of Systems - ROS Summary Review of Systems Summary: Home Medications Medication Instructions Recorded Confirmed Type Buprenorphine HCl/Naloxone HCl 06/20/19 History [Buprenorp-Nalox 8-2 mg Sl Film] Nabumetone 06/20/19 History methocarbamoL [Methocarbamol] 06/20/19 History Positive: Other - reported alcohol intoxication Cardiovascular: Negative Respiratory: Negative All Other Systems Reviewed And Are Negative: Yes Physical Exam - Summary Physical Exam Summary: General: Well-developed, Well-nourished male. No acute distress. HEENT: Normocephalic, Atraumatic. Eyes: Conjuctiva normal, PERRL. Oropharynx: Clear, mucous membranes moist, (-) exudates. Neck: Soft, FROM, (-) lymphadenopathy, (-) thyromegaly, (-) JVD. Cardiovascular: Normal sinus rhythm, (-) murmur. Lungs: Clear to auscultation bilaterally (-) wheezes, (-) rales, (-) rhonchi. Abdomen: Soft, non-tender, non-distended, (-) organomegaly, normal bowel sounds. Back: (-) CVA tenderness Extremities: No edema. Skin: Warm, dry, (-) rash. Neuro: Alert and oriented x3, moves all extremities equally. No ataxia. No gait disturbance. No sensory deficit. Normal strength, normal sensation. Psychiatric: Mood normal, flat affect Triage Information Reviewed: Yes Vital Signs On Initial Exam: Initial Vitals Temp Pulse Resp BP Pulse Ox 98.4 F 77 18 121/74 98 06/20/19 23:06 06/20/19 23:06 06/20/19 23:06 06/20/19 23:06 06/20/19 23:06 Vital Signs Reviewed: Yes Procedures - Sedation Patient Received Moderate/Deep Sedation with Procedure: No Diagnostics - Vital Signs Vital Signs Temp Pulse Resp BP Pulse Ox 06/20/19 23:06 98.4 F 77 18 121/74 98 - Laboratory Lab Statement: Any lab studies that have been ordered have been reviewed, and results considered in the medical decision making process. Course/Dx - Course Course Of Treatment: 29-year-old male brought in for legal blood draw. Patient arrested for driving while intoxicated. Patient has no questions or concerns at this time. Physical exam within normal limits. Blood drug taken and patient discharged with police. - Diagnoses Provider Diagnoses: Encounter for blood-alcohol and blood-drug test Discharge ED - Sign-Out/Discharge Documenting (check all that apply): Patient Departure - discharge - Discharge Plan Condition: Stable Disposition: HOME Patient Education Materials: Alcohol Intoxication (ED) Referrals: Tc Serrano MD [Primary Care Provider] - 3 Days Additional Instructions: PLEASE RETURN TO ED FOR ANY NEW OR CONCERNING SYMPTOMS. PLEASE FOLLOW UP WITH YOUR PRIMARY CARE PHYSICIAN WITHIN THREE DAYS. - Billing Disposition and Condition Condition: STABLE Disposition: Home - Attestation Statements Document Initiated by Scribe: Yes Documenting Scribe: BRENDEN JON Provider For Whom Raymon is Documenting (Include Credential): NAYA MANUEL MD Scribe Attestation: BRENDEN Sharma, scribed for NAYA MANUEL MD on 06/21/19 at 0648. Scribe Documentation Reviewed: Yes Provider Attestation: The documentation as recorded by the BRENDEN frias accurately reflects the service I personally performed and the decisions made by , NAYA MANUEL MD Status of Scribe Document: Viewed
[2019-06-21 00:02] VITALS: BP 123/73
== END 2019-06-20 23:56 | disposition home or self-care (01) ==
LOC: ED 23:03
DX: Z02.83 Encounter for blood-alcohol and blood-drug test (principal); Z88.2 Allergy status to sulfonamides; Z91.040 Latex allergy status; Z87.891 Personal history of nicotine dependence
CPT/HCPCS: 99282